=== PATIENT | female | born 1990 | race African-American/Black ===

== ENCOUNTER 2017-08-28 19:12 | Emergency (ER) | payer SELFPAY ==
[2017-08-28 19:15] VITALS: BP 142/81; PULSE 78; RESP 18; TEMP 98.9; O2SAT 100
[2017-08-28] MEDS ORDERED: IBUPROFEN 800 MG TAB PO ONE (19:30)
--- NOTE | 2017-08-28 20:11 | RADRPT ---
EXAM DATE/TIME: 08/28/2017 19:54 [place] COMPARISON: No previous studies available for comparison. INDICATIONS : Right knee pain after dog running into knee. MEDICAL HISTORY : None. SURGICAL HISTORY : None. ENCOUNTER: Initial ACUITY: 1 day PAIN SCORE: 6/10 LOCATION: Right medial knee. FINDINGS: Four view examination of the right knee demonstrates no evidence of fracture or dislocation. Bony mi neralization is normal. The articular surfaces are intact. The suprapatellar soft tissues have a no rmal configuration. CONCLUSION: Unremarkable examination of the right knee. Juan Larios Jr., MD on August 28, 2017 at 20:09 Board Certified Radiologist. This report was verified electronically.
--- NOTE | 2017-08-28 20:52 | PD ---
HPI Chief Complaint: Musculoskeletal Complaint Time Seen by Provider: 20:36 Travel History International Travel<30 days: No Contact w/Intl Traveler<30days: No Traveled to known affect area: No History of Present Illness HPI Patient comes in complaining of right knee pain began earlier today after her neighbors dog ran to the lateral aspect of her right knee. Patient having pain that she describes as aching throbbing sensation over the medial aspect of her right knee that radiates distally is worse with movement and trying to walk. Patient denies doing anything for this prior to coming to the emergency department. Denies anything making it better. Patient denies any numbness or tingling anywhere, or . PFSH Past Medical History Medical History: Denies Significant Hx ?: Not LMP: 08/21/17 Social History Alcohol Use: Yes Tobacco Use: No Substance Use: Yes (marijuana) Allergies-Medications (Allergen,Severity, Reaction): Coded Allergies: latex (Verified Allergy, Mild, Itching, 08/28/17) Reported Meds & Prescriptions Reported Meds & Active Scripts Active Naprosyn (Naproxen) 500 Mg Tab 500 Mg PO Q12HR Review of Systems Except as stated in HPI: all other systems reviewed are Neg Physical Exam Narrative GENERAL: Well-developed, overly nourished, in no acute distress, and non-ill appearing. SKIN: Focused skin assessment warm and dry. HEAD: Atraumatic. Normocephalic. EYES: Pupils equal and round. EOMI. No scleral icterus. No injection or drainage. ENT: No nasal bleeding or discharge. Mucous membranes pink and moist. NECK: Trachea midline. Supple. No nuclear rigidity. RESPIRATORY: No accessory muscle use. No respiratory distress. MUSCULOSKELETAL: No obvious deformities. No clubbing. No cyanosis. No edema. Full range of motion. Knee: Negative patellar apprehension, varus and valgus maneuvers, anterior draw test, and Belkis test. Pulses equal BL distal to injury. Capillary refill less than 2 seconds distal to injury and equal BL. FROM distal to injury and equal BL. Strength distal to injury equal BL. NV intact distal to injury. Dorsal pulses equal BL. Sensation equal BL 1st web space. Patient reports tenderness to palpation over medial aspect of the right knee. There is no crepitus. NEUROLOGICAL: Awake and alert. No obvious cranial nerve deficits. Motor grossly within normal limits. Normal speech. PSYCHIATRIC: Appropriate mood and affect; insight and judgment normal. Data Data Last Documented VS Vital Signs Date Time Temp Pulse Resp B/P (MAP) Pulse Ox O2 Delivery O2 Flow Rate FiO2 08/28/17 22:14 08/28/17 19:15 98.9 78 18 100 Room Air Orders Orders Knee, Complete (4vws) (08/28/17 ) Ibuprofen (Motrin) (08/28/17 19:30) Splint Or Brace Apply/Monitor (08/28/17 20:49) Ed Discharge Order (08/28/17 20:53) [facility] Medical Decision Making Medical Screen Exam Complete: Yes Emergency Medical Condition: Yes Differential Diagnosis Fracture, sprain, contusion, dislocation, other Narrative Course There is no clinical evidence to suspect bony injury by exam. Radiographic examination revealed no fracture seen at this time. No obvious ligamental injury or obvious internal derangement is noted at this time. The anterior, posterior, lateral and medial collateral ligaments are intact and symmetrical. The distal extremity appears neurovascularly intact, without evidence of neurovascular injury nor compartment syndrome. Tendon exam also was intact. The effected limb was immobilized. The patient was discharged on pain medication along with sprain and splint care instructions and given warnings for vascular compromise. The patient is to follow up with primary care provider and/or Orthopedics. The patient agrees with plan. Patient in no obvious distress upon re-evaluation. All pertinent Radiology result(s) discussed with patient. Patient was asked if they wanted to speak to my attending, which the patient did not wish to do at this time. Any questions/ concerns in reference to patient diagnosis/condition discussed and clarified prior to patient's discharge. Reinforced sheer importance of close follow up with patient's primary physician or primary care clinic. Instructed patient to return to ED immediately, if symptoms return/worsen. Patient showed understanding of above instructions. Further instructions and recommendations were detailed in discharge paperwork. Patient ambulated without difficulty out of ED at discharge with crutches. Diagnosis Primary Impression: Right knee sprain Qualified Codes: S83.91XA - Sprain of unspecified site of right knee, initial encounter Referrals: Yuri Arauz MD Patient Instructions: Crutch Instructions (ED), General Instructions, Knee Immobilizer (ED), Knee Sprain (DC) Additional Instructions: Follow-up with your primary care physician or orthopedics in 2-5 days for evaluation. Take all medication as prescribed. Apply ice to affected area 20 minutes per hour as needed for pain. Return to the emergency department if symptoms get worse. Med/Other Pt SpecificInfo: Prescription(s) given Scripts Naproxen (Naprosyn) 500 Mg Tab 500 MG PO Q12HR, #14 TAB 0 Refills Prov: Miko Arango MD 08/28/17 Disposition: 01 DISCHARGE HOME Condition: Stable Aidan Oliva Aug 28, 2017 20:52
[2017-08-28] MEDS ORDERED: NAPR500 PO (20:53)
== END 2017-08-28 22:26 | disposition home or self-care (01) ==
LOC: NEPK 19:12
DX: S83.91XA Sprain of unspecified site of right knee, initial encounter (principal); W54.1XXA Struck by dog, initial encounter
CPT/HCPCS: 73564; 99283; E0113; L1830